=== PATIENT | male | born 1990 | race Caucasian/White ===

== ENCOUNTER 2019-06-12 08:25 | Emergency (ER) | payer SELFPAY ==
[2019-06-12 08:41] VITALS: BP 164/72
[2019-06-12] MEDS ORDERED: AZITHROMYCIN 250 MG TABLET PO ONE (09:29)
--- NOTE | 2019-06-12 09:32 | ER Document Report ---
ED ENT - General Chief Complaint: Ear Pain Stated Complaint: EAR PAIN Primary Care Provider: MARIA ELENA PAUL DO [ASSOCIATE] - Follow up in 1 week TRAVEL OUTSIDE OF THE [place] IN LAST 30 DAYS: No - HPI Notes: 29-year-old male to the emergency department with complaints of left ear pain and discharge that has been getting worse for the past 4 days. He states he has a history of recurrent ear infections. He is actually had tubes twice - once when he was a child and then a second set at age 18. 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 He states he has not been running a fever. He states he has been taking Tylenol and Motrin so it is possible that he has been covering the fever. He denies any sore throat, cough, chest pain, shortness of breath, nasal congestion. - Related Data Allergies/Adverse Reactions: cefaclor [From Ceclor] Allergy (Verified 06/12/19 09:19) Penicillins Allergy (Verified 06/12/19 09:19) phenobarbital Allergy (Verified 06/12/19 09:19) Past Medical History - General Information source: Patient - Social History Smoking Status: Current Every Day Smoker Frequency of alcohol use: None Drug Abuse: None Family History: Reviewed & Not Pertinent Patient has suicidal ideation: No Patient has homicidal ideation: No Review of Systems - Review of Systems Constitutional: denies: Chills, Fever EENT: See HPI, Ear pain, Ear discharge Cardiovascular: denies: Chest pain, Palpitations, Heart racing, Syncope, Dizziness, Lightheaded Gastrointestinal: denies: Abdominal pain, Diarrhea, Nausea, Vomiting Genitourinary: No symptoms reported Musculoskeletal: No symptoms reported Skin: No symptoms reported Hematologic/Lymphatic: No symptoms reported Neurological/Psychological: No symptoms reported -: Yes All other systems reviewed and negative Physical Exam - Vital signs Vitals: Temp Pulse Resp BP Pulse Ox 98.5 F 86 16 164/72 H 100 06/12/19 08:40 06/12/19 08:40 06/12/19 08:40 06/12/19 08:40 06/12/19 08:40 Interpretation: Normal - General General appearance: Appears well, Alert In distress: Mild Notes: Mild pain distressis holding his left ear in his hand - HEENT Head: Normocephalic, Atraumatic Eyes: Normal Pupils: PERRL Ears: Normal External canal: Other - The left ear canal is draining purulent discharge from the TM. The canal itself is not edematous. Tympanic membrane: Perforation - There is evidence for otitis media with left TM erythema and perforation with discharge into the ear canal. There is no ten derness to palpation over the mastoid. Right TM has scarring but no evidence for acute otitis media Sinus: Normal Nasal: Normal. No: Clear rhinorrhea Mouth/Lips: Normal. No: Angioedema Pharynx: Normal. No: Uvular edema, Potential airway comprom. Neck: Normal, Supple. No: Lymphadenopathy, Meningismus - Respiratory Respiratory status: No respiratory distress Chest status: Nontender Breath sounds: Normal Chest palpation: Normal - Cardiovascular Rhythm: Regular Heart sounds: Normal auscultation Murmur: No - Back Back: Normal, Nontender - Psychological Associated symptoms: Normal affect, Normal mood - Skin Skin Temperature: Warm Skin Moisture: Dry Skin Color: Normal Course - Re-evaluation Re-evalutation: 06/12/19 Impression: Left otitis media with perforation. We will go ahead and start on azithromycin since patient has allergies to cephalosporins and penicillins. Will send home with a little bit of pain medicine as well. We will have him follow-up with ENT. Patient agrees with plan. - Vital Signs Vital signs: Temp Pulse Resp BP Pulse Ox 98.5 F 86 16 164/72 H 100 06/12/19 08:40 06/12/19 08:40 06/12/19 08:40 06/12/19 08:40 06/12/19 08:40 Discharge - Discharge Clinical Impression: Left ear pain Otitis media Qualifiers: Otitis media type: suppurative Chronicity: acute Laterality: left Recurrence: recurrent Spontaneous tympanic membrane rupture: with spontaneous rupture Qualified Code(s): H66.015 - Acute suppurative otitis media with spontaneous rupture of ear drum, recurrent, left ear Condition: Stable Disposition: HOME, SELF-CARE Instructions: Otitis Media ([facility]) Additional Instructions: COMPLETE ALL ANTIBIOTICS. FOLLOW UP WITH ENT WITHOUT FAIL. RETURN IF WORSENING SYMPTOMS. PUSH FLUIDS. SOFT DIET. Prescriptions: Azithromycin 500 mg PO DAILY #4 tablet Tramadol HCl [Ultram] 50 mg PO Q8H #10 tablet Referrals: MARIA ELENA PAUL DO [ASSOCIATE] - Follow up in 1 week
== END 2019-06-12 09:48 | disposition home or self-care (01) ==
LOC: ER 08:25
DX: H66.015 Acute suppurative otitis media with spontaneous rupture of ear drum, recurrent, left ear (principal); H92.02 Otalgia, left ear; Z88.0 Allergy status to penicillin